=== PATIENT | male | born 1945 | race Caucasian/White ===

== ENCOUNTER 2019-02-28 04:13 | Emergency (ER) | payer MEDICARE, OTHER ==
[~2019-02-28] VITALS: Ht 167.6 cm; Wt 96.0 kg
[~2019-02-28 04:13] MED LIST: AMOXICILLIN500 MG OR; GABAPENTIN300 MG PO; GLUCOPHAGE500 MG PO; GRALISE300 MG PO; LISINOPRIL5 MG PO; PRAVASTATIN10 MG PO; ROXICET1 TA1 OR; ROXICODONE5 MG OR
[2019-02-28 04:55] VITALS: BP 166/88
== END 2019-02-28 04:55 | disposition home or self-care (01) ==
LOC: ED 04:13
DX: R04.0 Epistaxis (principal); E11.9 Type 2 diabetes mellitus without complications; Z79.84 Long term (current) use of oral hypoglycemic drugs

== ENCOUNTER 2021-08-04 11:07 | Emergency (ER) | payer MEDICARE ==
[~2021-08-04] VITALS: Ht 167.6 cm; Wt 94.5 kg
[2021-08-04] MEDS ORDERED: MULTIVITAMI9 PO (11:50)
[2021-08-04 13:19] LABS: HEMATOCRIT 41.1 % (39.0-50.0); HEMOGLOBIN 12.5 g/dl (14.0-18.0); IMMATURE GRANULOCYTES 0.3 % (0.0-5.0); MEAN CORPUSCULAR HGB 23.3 pG CALC (26.0-32.0); MEAN CORPUSCULAR HGB CONC 30.4 g/dL CAL (32.0-36.0); NEUT# 1.99 thou/uL (1.82-7.42); RED BLOOD COUNT 5.37 mill/uL (4.70-6.10); RED CELL DISTRI WIDTH 17.7 % (11.5-15.5)
[2021-08-04 13:39] LABS: MEAN CELL VOLUME 76.5 fL CALC (80.0-100.0)
[2021-08-04 13:40] LABS: ALBUMIN 4.1 g/dL (3.2-5.0); ALKALINE PHOSPHATASE 68 u/l (38-126); AMYLASE 75 u/l (30-110); ANION GAP 14 (6-22 (CALC)); BILIRUBIN, TOTAL 0.7 mg/dL (0.0-1.4); BUN 16 mg/dL (8-23); BUN/CREATININE RATIO 14 (12-20 (CALC)); CARBON DIOXIDE 22 mmol/l (22-30); CHLORIDE 105 mmol/l (95-108); CREATININE 1.2 mg/dL (0.7-1.3); GFR 59 ML/MIN (>=60 (CALC)); GFR FOR AFR.AMER. > 60 ML/MIN (>=60 (CALC)); LIPASE 128 u/l (23-300); POTASSIUM 4.5 mmol/l (3.5-5.1); SGOT/AST 41 u/l (19-48); SODIUM 137 mmol/l (137-146); TOTAL PROTEIN 7.3 g/dL (6.3-8.2)
[2021-08-04 13:49] LABS: MYOGLOBIN 42 ng/mL (0 - 121)
[2021-08-04 15:10] LABS: URINE BILIRUBIN - DIPSTICK NEGATIVE (NEGATIVE); URINE BLOOD DIPSTICK NEGATIVE (NEGATIVE); URINE COLOR YELLOW; URINE GLUCOSE - DIPSTICK >=1000 mg/dL (NEGATIVE); URINE KETONE 15 mg/dL (NEGATIVE); URINE LEUK ESTERASE NEGATIVE (NEGATIVE); URINE PH 5.5 (4.5-8.0); URINE PROTEIN - DIPSTICK TRACE mg/dL (NEG-TRACE); URINE SPECIFIC GRAVITY >=1.030; URINE UROBILINOGEN - DIPSTICK 0.2 E.U./dL (0.2)
[2021-08-04 15:11] LABS: URINE NITRITE - DIPSTICK NEGATIVE (Negative)
[2021-08-04] MEDS ORDERED: MECLIZINE25 MG PO (15:38)
[2021-08-04] MEDS ORDERED: PREVACID30 M3 PO (15:38)
[2021-08-04 15:39] VITALS: BP 136/79
== END 2021-08-04 15:46 | disposition home or self-care (01) ==
LOC: ED 11:07
PROVIDERS: Emergency Medicine
DX: K29.70 Gastritis, unspecified, without bleeding (principal); R42 Dizziness and giddiness; I10 Essential (primary) hypertension; E11.9 Type 2 diabetes mellitus without complications; Z79.84 Long term (current) use of oral hypoglycemic drugs
CPT/HCPCS: S0164